=== PATIENT | female | born 1955 | race Caucasian/White ===

== ENCOUNTER 2017-08-30 19:12 | Inpatient (IN) | payer BC, OTHER ==
[~2017-08-30] VITALS: Ht 152.4 cm; Wt 54.0 kg
[2017-08-30 20:43] LABS: HEMATOCRIT 41.2 % (36.0-46.0); MCH 30.1 PG (29.0-34.0); MCHC 34.5 G/DL (30.0-36.0); MCV 87.3 FL (83-99); MEAN PLAT.VOLUME 9.7 uM^3 (9.5-12.4); PLATELET COUNT 382 K/uL (156-360); RBC DIS.WIDTH-CV 12.1 % (11.8-14.6); RBC DIS.WIDTH-SD 39.1 % (39-53); RED BLOOD COUNT 4.72 M/uL (3.80-5.20); WHITE BLOOD COUNT 13.6 K/uL (4.1-10.2)
[2017-08-30 20:48] LABS: ADD MEDTOX COMMENT Y; AMPHETAMINE NEGATIVE (500 ng/mL); BARBITURATES NEGATIVE (200 ng/mL); BENZODIAZEPINES PRESUMPTIVE POSITIVE (150 ng/mL); COCAINE NEGATIVE (150 ng/mL); INTERNAL CONTROLS VALID? YES; METHADONE NEGATIVE (200 ng/mL); METHAMPHETAMINE NEGATIVE (500 ng/mL); OPIATES (MORPHINE) NEGATIVE (100 ng/mL); OXYCODONE NEGATIVE (100 ng/mL); PHENCYCLIDINE NEGATIVE (25 ng/mL); PROPOXYPHENE NEGATIVE (300 ng/mL); THC CANNABINOIDS PRESUMPTIVE POSITIVE (50 ng/mL); TRICYCLIC ANTIDEPRESSANTS NEGATIVE (300 ng/mL)
[2017-08-30 20:56] LABS: CHLORIDE 99 mEq/L (99-109); POTASSIUM 3.3 mEq/L (3.7-5.4); SODIUM 137 mEq/L (136-147)
[2017-08-30 20:57] LABS: MAGNESIUM 2.6 mg/dL (1.3-2.7)
[2017-08-30 20:58] LABS: GLUCOSE 119 mg/dL (70-99)
[2017-08-30 20:59] LABS: ANION GAP 14 MEQ/L (2-14)
[2017-08-30 21:01] LABS: SERUM ETHYL ALCOHOL < 10 mg/dL
[2017-08-30 21:02] LABS: GFR ESTIMATE (CALCULATED) 48 mL/min/
[2017-08-30 21:04] LABS: UREA NITROGEN (BUN) 24 mg/dL (9-23)
[2017-08-30 21:05] LABS: SALICYLATE < 5.0 MG/DL (15-30)
[2017-08-30 21:17] LABS: BENZODIAZEPINES, URINE SCREEN POSITIVE (200 ng/mL)
[2017-08-31 00:21] VITALS: BP 126/62
[2017-08-31] MEDS ORDERED: IBUPROFEN600 MG PO (02:18)
[2017-08-31 07:37] VITALS: BP 105/64
[2017-08-31 14:58] VITALS: BP 113/57
[2017-09-01 08:11] VITALS: BP 133/78
[2017-09-01 15:55] VITALS: BP 163/77
[2017-09-02 07:51] VITALS: BP 136/83
[2017-09-02 15:44] VITALS: BP 117/72
[2017-09-03 07:51] VITALS: BP 143/79
[2017-09-03 15:36] VITALS: BP 152/73
[2017-09-04 07:56] VITALS: BP 129/73
[2017-09-04] MEDS ORDERED: ARIPIPRAZOLE10 MG PO (09:12)
[2017-09-04] MEDS ORDERED: DIVALPROEX SOD250 M1 PO (09:12)
[2017-09-04 15:53] VITALS: BP 153/75
== END 2017-09-04 17:23 | disposition home or self-care (01) | DRG 885 ==
LOC: EME 19:12 → EDOF 21:01 → 1WEST 21:01 → ENRESERV 22:00 → 1WEST 08-31 00:08
PROVIDERS: Emergency Medicine
DX: F31.2 Bipolar disorder, current episode manic severe with psychotic features (principal); F12.90 Cannabis use, unspecified, uncomplicated; R45.851 Suicidal ideations; M79.7 Fibromyalgia; Z91.14 Patient's other noncompliance with medication regimen
CPT/HCPCS: 80048; 83735; 84999; 85027; 90837; 97150 GO; 97166 GO; 99281; 99285; G0480